=== PATIENT | male | born 2000 | race Hispanic/Latino ===

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

== ENCOUNTER → 2023-09-18 | Emergency (ER) | payer SELFPAY ==
[~2023-09-18] MED LIST: CEPHALEXIN 250 MG CAP ONE; MUPIROCIN 2% OINT 22GM TUBE TOP ONE; SMZ./TMP. 800/160 MG TABLET ONE; TDAP (DIPHTH,PERTUSS(ACELL),TET VAC) 0.5 ML VIAL IMVAC ONE
--- OUTSIDE RECORDS SUMMARY | 2023-09-18 18:14 | XMS REPORT | Continuity of Care Document ---
Author Name Unknown Address [address] [place] [address]. [address] [employer] Address [address] [place] [address]. [address] [place] [address] Care Team Providers Care Manager Of Program Name Role Phone HIREN GARAY Attending Clinician Unavailabl e Encounters Start Date/Time End Date/Time Encounter Type Admission Type Attending Clinicians Care Facility Care Department Encounter ID Source 2023-09-23 13:00:00 2023-09-23 13:00:00 Outpatient HIREN GARAY [facility] [id number] [facility]
--- NOTE | 2023-09-18 19:10 | RAD REPORT ---
EXAM DESCRIPTION: RAD - Hand Right 3 View - 09/18/2023 6:51 pm CLINICAL HISTORY: Deformity;Pain;Smash injury COMPARISON: No comparisons TECHNIQUE: Right hand, 3 views. FINDINGS: No fracture is identified. There is no dislocation or periosteal reaction noted. No foreign body or soft tissue gas. Soft tissue swelling about the dorsum of the hand. IMPRESSION: Soft tissue swelling, without acute osseous abnormality.
--- NOTE | 2023-09-18 19:27 | ER ---
Nurse's Notes [facility] Name: Bryan Manjarrez Age: 23 yrs Sex: Male : 2000 Arrival Date: 09/18/2023 Time: 18:11 Bed 7 Private MD: Diagnosis: Laceration without foreign body of right hand;Contusion of right hand Presentation: 09/18 18:19 Chief complaint: Patient states: Laceration to 2nd and 3rd knuckles on right hand. pt cm10 states reports pain, swelling noted. Coronavirus screen: Vaccine status: Patient reports being unvaccinated. Client denies travel out of the [place] in the last 14 days. Ebola Screen: Patient denies travel to an Ebola-affected area in the 21 days before illness onset. No symptoms or risks identified at this time. Complicating Factors: There are no complicating factors for this patient. Initial Sepsis Screen: Does the patient meet any 2 criteria? No. Patient's initial sepsis screen is negative. Does the patient have a suspected source of infection? No. Patient's initial sepsis screen is negative. Risk Assessment: Do you want to hurt yourself or someone else? Patient reports no desire to harm self or others. Onset of symptoms was September 18, 2023. 18:19 Method Of Arrival: Ambulatory cm10 18:19 Acuity: LANNY 4 cm10 Historical: - Allergies: 18:21 No Known Allergies; cm10 - PMHx: 18:21 Anxiety; cm10 - Immunization history:: Adult Immunizations unknown. - Social history:: Smoking status: Patient denies any tobacco usage or history of. Screenin:31 [facility] ED Fall Risk Assessment (Adult) History of falling in the last 3 months, aa5 including since admission No falls in past 3 months (0 pts) Confusion or Disorientation No (0 pts) Intoxicated or Sedated No (0 pts) Impaired Gait No (0 pts) Mobility Assist Device Used No (0 pt) Altered Elimination No (0 pt) Score/Fall Risk Level 0 - 2 = Low Risk Oriented to surroundings, Maintained a safe environment, Educated pt \T\ family on fall prevention, incl call for assistance when getting out of bed. Abuse screen: Denies threats or abuse. Nutritional screening: No deficits noted. Tuberculosis screening: No symptoms or risk factors identified. Assessment: 18:30 General: Appears comfortable, Behavior is calm, cooperative. Pain: Complains of pain in aa5 right hand Pain does not radiate. Pain currently is 8 out of 10 on a pain scale. Quality of pain is described as aching, tender, throbbing, Pain began 1 day ago. Is continuous. Neuro: Level of Consciousness is awake, alert, obeys commands, Oriented to person, place, time, situation. Cardiovascular: Patient's skin is warm and dry. Respiratory: Airway is patent Respiratory effort is even, unlabored, Respiratory pattern is regular, symmetrical. GI: No signs and/or symptoms were reported involving the gastrointestinal system. : No signs and/or symptoms were reported regarding the genitourinary system. EENT: No signs and/or symptoms were reported regarding the EENT system. Derm: Skin is pink, warm \T\ dry. Musculoskeletal: Swelling present in knuckles to right index finger and right middle finger. Injury Description: Laceration sustained to between right index finger knuckle and right middle finger knuckle. is clean, 0.5 to 2.5 cm long, not bleeding, was sustained 1 day ago. 19:23 Reassessment: Patient appears in no apparent distress at this time. No changes from tm6 previously documented assessment. Vital Signs: 18:19 BP 140 / 98; Pulse 79; Resp 18; Temp 98.4; Pulse Ox 100% on R/A; Weight 122.47 kg; cm10 Height 5 ft. 6 in. ; Pain 8/10; 19:23 Pulse 67; Pulse Ox 100% ; tm6 19:23 BP 131 / 68; tm6 18:19 Body Mass Index 43.58 (122.47 kg, 167.64 cm) cm10 18:19 Pain Scale: Adult cm10 ED Course: 18:15 Patient arrived in ED. im 18:16 Attila Barrios MD is Attending Physician. ec2 18:16 [facility] Pedroza F[facility]-C [facility] kb 18:21 Triage completed. cm10 18:21 Arm band placed on Patient placed in waiting room. cm10 18:30 Zelda Fairchild, ROBERTO is Primary Nurse. aa5 18:30 Patient has correct armband on for positive identification. Bed in low position. Call aa5 light in reach. Side rails up X 1. 18:53 Hand Right 3 View XRAY In Process Unspecified. EDMD 19:00 Report given to ROBERTO Schulte. aa5 19:08 Attending Physician role handed off by Attila Barrios MD [facility] 19:08 Pio Lilly MD is Attending Physician. [facility] 19:24 Provided Education on: plan of care. tm6 19:24 No provider procedures requiring assistance completed. tm6 19:30 Baudilio Haro MD is Referral Physician. [facility] 19:52 Patient did not have IV access during this emergency room visit. Wound care: ice pack tm6 applied. Patient tolerated well. wound care completed. Administered Medications: 19:50 Drug: Mupirocin Topical Ointment 2 % 1 application Topical once Route: Topical; Site: tm6 affected area; 19:50 Drug: Cephalexin PO 500 mg PO once Route: PO; tm6 19:50 Drug: Trimethoprim-Sulfamethoxazole PO (160 mg-800 mg (DS) 1 tablet PO once Route: PO; tm6 19:51 Not Given (Product Out of Stock): tetanus toxoid,adsorbed0.5 ml IM once; Provide tm6 Vaccine Information Statement (VIS). 19:51 Drug: Boostrix Tdap IM 0.5 ml IM once; as a single dose Route: IM; Site: right deltoid; tm6 Medication: 19:24 VIS not applicable for this client. tm6 Outcome: 19:26 Discharge ordered by . [facility] 19:51 Discharged to home ambulatory, with family, tm6 19:51 Condition: stable 19:51 Discharge instructions given to patient, family, Instructed on discharge instructions, follow up and referral plans. medication usage, Demonstrated understanding of instructions, follow-up care, medications, wound care, Prescriptions given X 3, 19:52 Patient left the ED. tm6 Signatures: Dispatcher [employer] EDMD Kendra Pedroza, JOINT TERMINAL ATTACK CONTROLLER-C JOINT TERMINAL ATTACK CONTROLLER-Ckb Pio Lilly MD MD cha Calderon, Audri RN RN aa5 Maryellen Harrington Clarissa, RN RN cm10 Attila Barrios MD MD ec2 Yoana Pozo RN RN tm6 Corrections: (The following items were deleted from the chart) 19:26 19:25 Reassessment: report attempted. 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 tm6 tm6 19:26 19:24 Inserted saline lock: 22 gauge in right forearm, using aseptic technique. tm6 tm6
--- NOTE | 2023-09-18 19:27 | EDPHYS ---
Physician Documentation [facility] Name: Bryan Manjarrez Age: 23 yrs Sex: Male : 2000 Arrival Date: 09/18/2023 Time: 18:11 Bed 7 Private MD: ED Physician Pio Lilly HPI: 09/18 18:22 This 23 yrs old Male presents to ER via Ambulatory with complaints of ec2 Laceration To Hand - [place] [id number] right, Hand Swelling - right. 18:22 Patient arrives today for evaluation of a right hand injury. States that he was ec2 punching a object last night, states that he subsequently injured the area between his second and third MCP joints. Patient reports that he is having increased pain as well as a small cut to the area. Reports no pus from the area, denies any fevers or chills.. Historical: - Allergies: 18:21 No Known Allergies; cm10 - PMHx: 18:21 Anxiety; cm10 - Immunization history:: Adult Immunizations unknown. - Social history:: Smoking status: Patient denies any tobacco usage or history of. ROS: 18:22 Constitutional: as per hpi ec2 Exam: 18:22 Constitutional: GEN: NAD Head: atraumatic Eyes: EOMI Ears: External ears are ec2 normal. CV: regular rate LUNGS: no respiratory distress ABD: non-distended SKIN: Soft tissue swelling noted to the second and third MCP area, scant amount of erythema noted, small superficial half centimeter laceration noted, on probing, it is superficial and does not extend into the joint space, was unable to have any insertion of the cotton swab MSK: As above NEURO: moves all extremities equally Vital Signs: 18:19 BP 140 / 98; Pulse 79; Resp 18; Temp 98.4; Pulse Ox 100% on R/A; Weight 122.47 kg; cm10 Height 5 ft. 6 in. ; Pain 8/10; 19:23 Pulse 67; Pulse Ox 100% ; tm6 19:23 BP 131 / 68; tm6 18:19 Body Mass Index 43.58 (122.47 kg, 167.64 cm) cm10 18:19 Pain Scale: Adult cm10 MDM: 18:17 Patient medically screened. ec2 18:22 Data reviewed: vital signs. ED course: Patient arrives today for evaluation of right ec2 hand injury. Examination remarkable for well-appearing nontoxic individual who has a wound as described above. Will obtain a radiograph of the right hand to further investigate the patient's injury. Currently considering superficial wound, underlying fracture. Ultimately given the superficial nature of the wound, this does not appear to extend into the joint space, accordingly if there is an underlying fracture, I would not consider this an open fracture.. 18:29 ED course: Of note patient up-to-date on tetanus shot.. ec2 09/18 18:22 Order name: Hand Right 3 View XRAY ec2 09/18 19:24 Order name: Wound dressing; Complete Time: 19:50 shey 09/18 19:24 Order name: Ice pack; Complete Time: 19:50 shey Administered Medications: 19:50 Drug: Mupirocin Topical Ointment 2 % 1 application Topical once Route: Topical; Site: tm6 affected area; 19:50 Drug: Cephalexin PO 500 mg PO once Route: PO; tm6 19:50 Drug: Trimethoprim-Sulfamethoxazole PO (160 mg-800 mg (DS) 1 tablet PO once Route: PO; tm6 19:51 Not Given (Product Out of Stock): tetanus toxoid,adsorbed0.5 ml IM once; Provide tm6 Vaccine Information Statement (VIS). 19:51 Drug: Boostrix Tdap IM 0.5 ml IM once; as a single dose Route: IM; Site: right deltoid; tm6 Disposition Summary: 09/18/23 19:26 Discharge Ordered Notes: Location: Home shey Problem: new shey Symptoms: have improved shey Condition: Stable shey Diagnosis - Laceration without foreign body of right hand shey - Contusion of right hand shey Followup: shey - With: Private Physician - When: 2 - 3 days - Reason: Recheck today's complaints, Continuance of care, Re-evaluation by your physician Followup: shey - With: Baudilio Haro MD - When: 2 - 3 days - Reason: Recheck today's complaints, Re-evaluation by your physician Discharge Instructions: - Discharge Summary Sheet shey - Hand Contusion shey - Laceration Care, Adult shey - Hand Contusion, [id number] shye - Laceration Care, Adult, [id number] shey - Wound Care, Adult shey - Hand Pain shey Forms: - Medication Reconciliation Form shey - Thank You Letter shey - Antibiotic Education [facility] - Prescription Opioid Use [facility] - Patient Portal Instructions [facility] - Leadership Thank You Letter [facility] Prescriptions: - Centany 2 % Topical ointment - apply 1 application TOPICAL route 3 times per day; 15 gram tube; Refills: 0, [facility] Product Selection Permitted - Cephalexin 500 mg Oral capsule - take 1 capsule ORAL route every 6 hours for 7 days; 28 capsule; Refills: 0, [facility] Product Selection Permitted - Ibuprofen 600 mg Oral Tablet - take 1 tablet ORAL route every 6 hours As needed take with food; 30 tablet; [facility] Refills: 0, Product Selection Permitted - Bactrim DS 800-160 mg Oral Tablet - take 1 tablet ORAL route every 12 hours for 7 days; 14 tablet; Refills: 0, [facility] Product Selection Permitted Signatures: Dispatcher [employer] EDPio Gao MD MD cha Martinez, Clarissa, RN RN cm10 Attila Barrios MD MD ec2 Yoana Pozo RN RN tm6 Corrections: (The following items were deleted from the chart) 18:28 18:22 Constitutional: GEN: NAD Head: atraumatic Eyes: EOMI Ears: External ears are ec2 normal. CV: regular rate LUNGS: no respiratory distress ABD: non-distended SKIN: Soft tissue swelling noted to the second and third MCP area, scant amount of erythema noted, small 1 cm laceration noted. MSK: no evidence of trauma NEURO: moves all extremities equally ec2 18:29 18:22 ED course: Patient arrives today for evaluation of right hand injury. Examination ec2 remarkable for well-appearing nontoxic individual who has a wound as described above. Will obtain a radiograph of the right hand to further investigate the patient's injury. Currently considering laceration, open fracture. Given the time of the injury, will defer closure.. ec2 18:31 18:31 Patient medically screened. ec2 ec2
[2023-09-18 20:23] VITALS: BP 131/68; TEMP 98.4; O2SAT 100
== END ==
LOC: ER 18:11
DX: S61.411A Laceration without foreign body of right hand, initial encounter (principal)
CPT/HCPCS: 96372; 99284